=== PATIENT | male | born 1955 | race Caucasian/White ===

== ENCOUNTER 2017-03-08 08:14 | Outpatient (RCR) | payer OTHER | END 2017-03-11 12:22 | disposition home or self-care (01) | LOC: CR 08:14 | PROVIDERS: ATTEND Internal Medicine | DX: Z48.812 Encounter for surgical aftercare following surgery on the circulatory system (principal); I25.2 Old myocardial infarction; Z95.5 Presence of coronary angioplasty implant and graft | CPT/HCPCS: 93798 ==

== ENCOUNTER 2018-02-28 09:35 | Outpatient (RCR) | payer OTHER ==
[2017-12-06 11:10] LABS: ABSOLUTE RETIC # 32 10e9/L (24-90); BASOPHILS % (AUTO) 0 % (0-10); EOSINOPHILS # (AUTO) 0.1 10^3/uL (0.0-0.3); EOSINOPHILS % (AUTO) 4 % (0-10); HEMATOCRIT 40 % (40-54); HEMOGLOBIN 12.6 G/DL (13.3-17.7); LYMPHOCYTES # (AUTO) 1.5 X 10^3 (1.0-4.0); LYMPHOCYTES % (AUTO) 40 % (12-44); MEAN CORPUSCULAR HEMOGLOBIN 25 PG (25-34); MEAN CORPUSCULAR HGB CONC 31 G/DL (32-36); MEAN CORPUSCULAR VOLUME 81 FL (80-99); MEAN PLATELET VOLUME 9.7 FL (7.4-10.4); MONOCYTES # (AUTO) 0.4 X 10^3 (0.0-1.0); MONOCYTES % (AUTO) 9 % (0-12); NEUTROPHILS # (AUTO) 1.8 X 10^3 (1.8-7.8); NEUTROPHILS % (AUTO) 47 % (42-75); PLATELET COUNT 186 10^3/uL (130-400); RETICULOCYTE % 0.64 % (0.50-2.40); WHITE BLOOD COUNT 3.8 10^3/uL (4.3-11.0)
[2017-12-06 11:34] LABS: ALANINE AMINOTRANSFERASE 23 U/L (0-55); ALBUMIN 4.1 GM/DL (3.2-4.5); ALKALINE PHOSPHATASE 46 U/L (40-136); BILIRUBIN,TOTAL 0.5 MG/DL (0.1-1.0); BUN/CREATININE RATIO 18; CALCIUM 8.8 MG/DL (8.5-10.1); CARBON DIOXIDE 21 MMOL/L (21-32); CHLORIDE 110 MMOL/L (98-107); CREATININE SERUM 0.93 MG/DL (0.60-1.30); GFR ESTIMATED > 60; GLUCOSE 151 MG/DL (70-105); POTASSIUM 4.6 MMOL/L (3.6-5.0); SODIUM 140 MMOL/L (135-145); TOTAL PROTEIN 6.4 GM/DL (6.4-8.2)
[2018-02-28 09:52] LABS: ABSOLUTE RETIC # 45 10e9/L (24-90); BASOPHILS % (AUTO) 0 % (0-10); EOSINOPHILS # (AUTO) 0.1 10^3/uL (0.0-0.3); EOSINOPHILS % (AUTO) 1 % (0-10); HEMATOCRIT 44 % (40-54); LYMPHOCYTES # (AUTO) 1.8 X 10^3 (1.0-4.0); LYMPHOCYTES % (AUTO) 41 % (12-44); MEAN CORPUSCULAR HEMOGLOBIN 30 PG (25-34); MEAN CORPUSCULAR HGB CONC 34 G/DL (32-36); MEAN CORPUSCULAR VOLUME 87 FL (80-99); MEAN PLATELET VOLUME 9.3 FL (7.4-10.4); MONOCYTES # (AUTO) 0.4 X 10^3 (0.0-1.0); MONOCYTES % (AUTO) 8 % (0-12); NEUTROPHILS # (AUTO) 2.2 X 10^3 (1.8-7.8); NEUTROPHILS % (AUTO) 50 % (42-75); PLATELET COUNT 219 10^3/uL (130-400); RED BLOOD COUNT 5.03 10^6/uL (4.35-5.85); RED CELL DISTRIBUTION WIDTH 15.1 % (10.0-14.5); WHITE BLOOD COUNT 4.4 10^3/uL (4.3-11.0)
[2018-02-28 10:08] LABS: ALANINE AMINOTRANSFERASE 33 U/L (0-55); ALBUMIN 4.3 GM/DL (3.2-4.5); ALKALINE PHOSPHATASE 54 U/L (40-136); BILIRUBIN,TOTAL 0.7 MG/DL (0.1-1.0); BUN/CREATININE RATIO 24; CARBON DIOXIDE 22 MMOL/L (21-32); CHLORIDE 111 MMOL/L (98-107); GFR ESTIMATED > 60; GLUCOSE 105 MG/DL (70-105); POTASSIUM 4.8 MMOL/L (3.6-5.0); SODIUM 140 MMOL/L (135-145); TOTAL PROTEIN 6.7 GM/DL (6.4-8.2)
== END 2018-03-06 | disposition home or self-care (01) ==
LOC: ONC 09:35
PROVIDERS: ATTEND Internal Medicine Hematology & Oncology
DX: D64.9 Anemia, unspecified (principal); K31.89 Other diseases of stomach and duodenum; K21.9 Gastro-esophageal reflux disease without esophagitis; I25.10 Atherosclerotic heart disease of native coronary artery without angina pectoris; I10 Essential (primary) hypertension; E11.9 Type 2 diabetes mellitus without complications; I25.2 Old myocardial infarction; Z95.5 Presence of coronary angioplasty implant and graft; Z79.02 Long term (current) use of antithrombotics/antiplatelets; Z79.82 Long term (current) use of aspirin; Z79.84 Long term (current) use of oral hypoglycemic drugs; Z79.899 Other long term (current) drug therapy
CPT/HCPCS: 36415; 80053; 82728; 83540; 85025; 85045; 99213; 99214

== ENCOUNTER → 2018-10-01 | Outpatient (CLI) | payer OTHER ==
[~2018-10-01] MED LIST: CATHETER FLUSH 10 ML SYR IV PRN
[2018-10-01 14:03] LABS: BASOPHILS % (AUTO) 0 % (0-10); EOSINOPHILS # (AUTO) 0.1 10^3/uL (0.0-0.3); EOSINOPHILS % (AUTO) 2 % (0-10); HEMATOCRIT 43 % (40-54); HEMOGLOBIN 14.1 G/DL (13.3-17.7); LYMPHOCYTES % (AUTO) 32 % (12-44); MEAN CORPUSCULAR HEMOGLOBIN 29 PG (25-34); MEAN CORPUSCULAR HGB CONC 33 G/DL (32-36); MEAN CORPUSCULAR VOLUME 89 FL (80-99); MEAN PLATELET VOLUME 9.3 FL (7.4-10.4); MONOCYTES # (AUTO) 0.5 X 10^3 (0.0-1.0); MONOCYTES % (AUTO) 9 % (0-12); NEUTROPHILS # (AUTO) 3.6 X 10^3 (1.8-7.8); NEUTROPHILS % (AUTO) 57 % (42-75); PLATELET COUNT 240 10^3/uL (130-400); RED CELL DISTRIBUTION WIDTH 13.5 % (10.0-14.5); WHITE BLOOD COUNT 6.3 10^3/uL (4.3-11.0)
[2018-10-01 14:19] LABS: ALANINE AMINOTRANSFERASE 28 U/L (0-55); ALBUMIN 4.5 GM/DL (3.2-4.5); ALKALINE PHOSPHATASE 60 U/L (40-136); BILIRUBIN,TOTAL 0.5 MG/DL (0.1-1.0); BUN/CREATININE RATIO 19; CALCIUM 9.7 MG/DL (8.5-10.1); CARBON DIOXIDE 19 MMOL/L (21-32); CHLORIDE 107 MMOL/L (98-107); CHOLESTEROL 121 MG/DL (< 200); CREATININE SERUM 0.94 MG/DL (0.60-1.30); GFR ESTIMATED > 60; GLUCOSE 101 MG/DL (70-105); HDL CHOLESTEROL 32 MG/DL (40-60); POTASSIUM 4.5 MMOL/L (3.6-5.0); SODIUM 137 MMOL/L (135-145); TOTAL PROTEIN 7.1 GM/DL (6.4-8.2); TRIGLYCERIDES 120 MG/DL (<150); VLDL CHOLESTEROL 24 MG/DL (5-40)
--- NOTE | 2018-10-01 15:39 | STRESS TEST ---
DATE OF SERVICE: 10/01/2018 EXERCISE MYOVIEW STRESS TEST REFERRING PHYSICIAN: [facility]. Baseline heart rate is 75. Baseline blood pressure 121/88. Baseline EKG is sinus rhythm with no ischemic changes. In summary, the patient was injected with 10.14 mCi of technetium-99 Myoview and the resting images were obtained and the patient started exercising with a baseline heart rate, blood pressure and EKG mentioned above. He was able to exercise for a total of 9 minutes on standard Lukas protocol. With peak exercise level, EKG was showing minimal nondiagnostic changes. During recovery, heart rate and blood pressure returned to baseline. EKG returned to baseline. The resting and stress images were reviewed and compared in the short axis, horizontal long axis, and vertical long axis views. Review of the images showed diaphragmatic attenuation affecting the quality of the images. There is decreased uptake involving the mid to apical anterior wall, true apex and anterior apical segment with mild reversibility. SSS is 13, SDS 4, and TID value 1.04. On the gated images, the left ventricle appeared to be normal size with hypokinesia of the anterior wall and apex. Calculated ejection fraction is 42%. CONCLUSION: 1. Good exercise tolerance, a total of 9 minutes on standard Lukas protocol, total of 10.5 METs, achieving 89% of maximum expected heart rate. 2. Hypertensive response to exercise with peak blood pressure 180/91, returned to baseline during recovery. 3. Minimal nondiagnostic EKG changes with exercise returned to baseline during recovery. 4. Diaphragmatic attenuation with reversible ischemia involving the anteroapical segment and through apex of the left ventricle. 5. Normal left ventricular size with hypokinesia at the anterior wall and anterior apical segment. Calculated ejection fraction is 42%. Job ID: [id number] DocumentID: [id number] Dictated Date: 10/01/2018 15:14:39 Rafter Cutting Machine Operator Date: 10/01/2018 15:38:13 Dictated By: EDY RAZA MD
== END ==
LOC: CARD 11:37
PROVIDERS: ATTEND Internal Medicine Cardiovascular Disease
DX: I25.10 Atherosclerotic heart disease of native coronary artery without angina pectoris (principal); I21.4 Non-ST elevation (NSTEMI) myocardial infarction; R06.02 Shortness of breath; I08.0 Rheumatic disorders of both mitral and aortic valves
CPT/HCPCS: 36415; 78452; 80053; 80061; 84443; 85025; 93017

== ENCOUNTER 2018-10-15 07:59 | Day surgery (SDC) | payer OTHER ==
[~2018-10-15] VITALS: Ht 180.3 cm; Wt 103.4 kg
[2018-10-15] VITALS (10 sets, daily range): BP systolic 104–134; BP diastolic 74–95
[2018-10-15] MEDS ORDERED: NS IV 1000 ML 1,000 ML IV SCH ×2 (08:15→10:55)
[2018-10-15] MEDS ORDERED: HEParin 1000 UNIT/ML (10ML VIAL) FOR BOLUS ONE (08:17)
[2018-10-15] MEDS ORDERED: LIDOCAINE 1% INJ 20 ML 20 ML VIAL ONE (08:17)
[2018-10-15 09:07] LABS: BILIRUBIN,URINE NEGATIVE (NEGATIVE); CLARITY,URINE CLEAR; COLOR,URINE YELLOW; GLUCOSE, URINE (UA) NEGATIVE (NEGATIVE); KETONES,URINE NEGATIVE (NEGATIVE); LEUKOCYTE ESTERASE ,URINE NEGATIVE (NEGATIVE); NITRITE,URINE NEGATIVE (NEGATIVE); PH,URINE 7 (5-9); PROTEIN,URINE NEGATIVE (NEGATIVE); UROBILINOGEN,URINE NORMAL (NORMAL)
[2018-10-15 09:07] LABS: MEAN PLATELET VOLUME 8.9 FL (7.4-10.4); RED CELL DISTRIBUTION WIDTH 13.6 % (10.0-14.5); WHITE BLOOD COUNT 4.4 10^3/uL (4.3-11.0)
--- NOTE | 2018-10-15 09:09 | Cardiac Procedure Note-CS/ASA ---
Pre-Procedure Note Pre-Op Procedure Note H&P Reviewed The H&P was reviewed, patient examined and no changes noted. Date H&P Reviewed: Oct 15, 2018 Time H&P Reviewed: 09:08 Conscious Sedation Pre-Proced Time 09:08 ASA Score 3 For ASA 3 and 4: Consider anesthesia and medical clearance. Also, for patients with a history of failed moderate sedation consider anesthesia. Airway Lungs Heart ASA score ASA 1: a normal healthy patient ASA 2: a patient with a mild systemic disease (mid diabetes, controlled hypertension, obesity x ASA 3: a patient with a severe systemic disease that limits activity (angina , COPD, prior Myocardial infarction) ASA 4: a patient with an incapacitating disease that is a constant threat to life (CHF, renal failure) ASA 5: a moribund patient not expected to survive 24 hrs. (ruptured aneurysm) ASA 6: a declared brain- patient whose organs are being harvested. For emergent operations, add the letter E after the classification Mallampati Classification Grade 3 Sedation Plan Analgesia, Amnesia, Plan communicated to team members, Discussed options with patient/fam, Discussed risks with patient/fam The patient is an appropriate candidate to undergo the planned procedure, sedation, and anesthesia. The patient immediately re-assessed prior to indication. EDY RAZA MD Oct 15, 2018 09:09
[2018-10-15 09:18] LABS: INR 1.1 (0.8-1.4); PROTHROMBIN TIME PATIENT 13.8 SEC (12.2-14.7)
[2018-10-15 09:20] LABS: BACTERIA,URINE NEGATIVE /HPF; SQUAMOUS EPITHELIAL CELL,UR 0-2 /HPF
[2018-10-15 09:21] LABS: AMORPHOUS SEDIMENT,UR FEW AMOR PHOSPHATE /LPF
--- NOTE | 2018-10-15 09:21 | Diagnostic Imaging Report ---
INDICATION: Chest pain, coronary artery disease COMPARISON: 11/26/2017 FINDINGS: Single view chest demonstrate minimal cardiac enlargement without pulmonary edema or infiltrate. There is no pneumothorax. The osseous structures normal. IMPRESSION: Minimal cardiac enlargement without pulmonary edema or infiltrate. Dictated by: Dictated on workstation # [id number]
[2018-10-15 09:25] LABS: ALANINE AMINOTRANSFERASE 32 U/L (0-55); ALBUMIN 4.3 GM/DL (3.2-4.5); ALKALINE PHOSPHATASE 57 U/L (40-136); BILIRUBIN,TOTAL 0.6 MG/DL (0.1-1.0); BUN/CREATININE RATIO 21; CALCIUM 9.1 MG/DL (8.5-10.1); CARBON DIOXIDE 25 MMOL/L (21-32); CHLORIDE 107 MMOL/L (98-107); CHOLESTEROL 107 MG/DL (< 200); CREATININE SERUM 0.89 MG/DL (0.60-1.30); GFR ESTIMATED > 60; GLUCOSE 111 MG/DL (70-105); HDL CHOLESTEROL 29 MG/DL (40-60); POTASSIUM 4.8 MMOL/L (3.6-5.0); SODIUM 139 MMOL/L (135-145); TRIGLYCERIDES 76 MG/DL (<150); VLDL CHOLESTEROL 15 MG/DL (5-40)
[2018-10-15] MEDS ORDERED: DEXL30CA2 PO (09:34)
[2018-10-15] MEDS ORDERED: CARV3.122 PO (09:35)
[2018-10-15] MEDS ORDERED: ASPI-586 PO (09:35)
[2018-10-15] MEDS ORDERED: CETI10TA20 PO (09:35)
[2018-10-15] MEDS ORDERED: LOSA25TA41 PO (09:36)
[2018-10-15] MEDS ORDERED: MONT10TA21 PO (09:36)
[2018-10-15] MEDS ORDERED: ATOR40TA70 PO (09:37)
[2018-10-15] MEDS ORDERED: METF-478 PO (09:37)
[2018-10-15] MEDS ORDERED: KRIL1CAP18 PO (09:38)
--- NOTE | 2018-10-15 09:38 | NUR ---
Went over medication bottles with . She stated how he took his medications and the last time medications where taken.
[2018-10-15] MEDS ORDERED: fentaNYL INJECTION 100 MCG/2 ML AMP ONE (10:02)
[2018-10-15] MEDS ORDERED: MIDAZOLAM 5 MG/5 ML (VERSED) VIAL ONE (10:02)
[2018-10-15] MEDS ORDERED: PATIENT MAY USE OWN MEDS, ALL PO SCH (11:00)
--- NOTE | 2018-10-15 11:02 | Cardiac Cath Report ---
Cardiac Cath Report Physician (s)/Slot Supervisor (s) Physician EDY RAZA MD Pre-Procedure Diagnosis Pre-Procedure Diagnosis: coronary artery disease Post-Procedure Note Procedure Start Date: Oct 15, 2018 Name of Procedure: Left heart catheterization Left ventriculogram Aortic arch angiogram Findings/Procedure Note PROCEDURE NOTE: 62 years old gentleman with history of coronary artery disease, had myocardial infarctions in 2017 with stent to the LAD, had an abnormal stress test and scheduled for cardiac catheterization possible PTCA After explaining the procedure to the patient, all pros and cons were explained , all questions were answered. The patient signed the consent and then he was placed on the cardiac catheterization laboratory. Groin was prepped SL fashion local anesthesia was used. Sheath placed in the right femoral artery. Samantha right and left catheter were used to access the coronary system. Pigtail was used to access the left ventricular cavity. Left ventriculogram was done Aortic arch angiogram was done At the end of the procedure the sheath was removed. Closure device was used FINDINGS: Hemodynamics LV 95/12, end-diastolic pressure of 12 Aorta 95/56 mean of 51 ANATOMY: Left Main is free of obstructive disease Left Anterior Descending has patent stent with mild disease at the distal LAD, nonobstructive disease Left Circumflex has 40-50 percent stenosis at the midportion, nonobstructive disease Right Coronory Artery is dominant artery with mild disease nonobstructive disease LV Gram showed normal left ventricular size with good contractility estimated ejection fraction 60 percent, mild hypokinesia at the apex Aorta evaluation done with aortic arch angiogram Showed hypertensive changes in the aortic arch, no dissection or aneurysm, origin of the right innominate artery, left carotid artery and left subclavian arteries appeared normal CONCLUSION: 1. Patent stent in the proximal LAD with small vessel disease at the distal LAD nonobstructive disease 2. Mild disease in the circumflex and right coronary artery nonobstructive disease 3. Normal left ventricular size and systolic function, mild hypokinesia at the apex, estimated ejection fraction 60 percent 4. Normal aortic arch and great vessels of the neck DISCUSSION AND RECOMMENDATION: continue with medical therapy no intervention is needed Anesthesia Type: Conscious Sedation Estimated blood loss (mL): 15 ml Contrast Amount: 52 ml Total Radiation Dose: 433 mGy Post-Procedure Diagnosis Post-operative diagnosis: Coronary artery disease Hypertension Hyperlipidemia Diabetes mellitus EDY RAZA MD Oct 15, 2018 11:02
--- NOTE | 2018-10-15 11:03 | Discharge Inst-Post CATH ---
Discharge Inst-CATH/EP Post Cardiac Cath/EP D/C Inst Follow Up/Plan Appointment with Dr Engel's office in 4 weeks Hold metformin for 48 hours CARDIAC CATH DISCHARGE INSTRUCTIONS *Hold Metformin for 48 hours post heart cath. ACTIVITY * Go Home directly and rest. * Limit activity of the leg (or wrist if it was used) for 7 days including aerobics, swimming, jogging, bicycling, etc. * Restrict stair-climbing for 7 days if possible, if not, climb up with your non -cath leg, then bring together on the same step. * Avoid lifting, pushing, pulling or excessive movement of the affected extremity for 7 days. * Customary sexual activity may be resumed after 2 days-use caution not to use a position that strains or causes pain to the affected extremity. * No driving for 24 hours. * NO SMOKING. * Avoid straining for bowel movements for 7 days. * Gentle walking on level ground is allowed. * Returning to work will depend on the type of procedure and the results. Your doctor will discuss this with you. CALL YOUR DOCTOR FOR ANY OF THE FOLLOWING: *If bleeding from the puncture site occurs- Apply gentle pressure to site with clean cloth and call your doctor or EMS. * If a knot or lump forms under the skin, increases in size, or causes pain. * If bruising appears to be worsening or moving further down your leg instead of disappearing. * Temperature above 101 F. CARE OF YOUR GROIN INCISION; * Bruising or purple discoloration of the skin near the puncture site is common. * You may shower only, no bathtub bathing for 5 days. Be careful to avoid slipping as your leg may feel stiff. * If a closure device was used on your femoral artery, please see the attached guide regarding care of the device and your leg. * Leave the dressing on, until removed by office staff. CARE OF YOUR WRIST INCISION; * Bruising or purple discoloration of the skin near the puncture site is common. * You may shower. * DO NOT submerge wrist. * Leave dressing on, until removed by office staff.. EDY ENGEL MD Oct 15, 2018 11:03
== END 2018-10-15 15:15 | disposition home or self-care (01) ==
LOC: RAD 07:59 → SDC 11:16 → CATH 15:15
PROVIDERS: ATTEND Internal Medicine Cardiovascular Disease
DX: I25.10 Atherosclerotic heart disease of native coronary artery without angina pectoris (principal); I11.0 Hypertensive heart disease with heart failure; E78.5 Hyperlipidemia, unspecified; E11.9 Type 2 diabetes mellitus without complications; I25.2 Old myocardial infarction; R06.02 Shortness of breath; G47.30 Sleep apnea, unspecified; I08.3 Combined rheumatic disorders of mitral, aortic and tricuspid valves; I65.29 Occlusion and stenosis of unspecified carotid artery; D64.9 Anemia, unspecified; I50.9 Heart failure, unspecified; Z79.899 Other long term (current) drug therapy; Z79.84 Long term (current) use of oral hypoglycemic drugs
CPT/HCPCS: 36221; 36415; 36430; 71045; 80053; 80061; 81000; 85027; 85610; 85730; 87081; 93458

== ENCOUNTER → 2020-03-17 | Outpatient (CLI) | payer OTHER ==
[~2020-03-17] MED LIST changes: +ASPI-586 PO; +ATOR40TA70 PO; +CARV3.122 PO; -CATHETER FLUSH 10 ML SYR IV PRN; +CETI10TA21 PO; +DEXL30CA2 PO; +KRIL1CAP18 PO; +LOSA25TA41 PO; +METF-478 PO; +MONT10TA21 PO
== END ==
LOC: CARD 15:00
PROVIDERS: ATTEND Internal Medicine Cardiovascular Disease
DX: I25.10 Atherosclerotic heart disease of native coronary artery without angina pectoris (principal); I25.5 Ischemic cardiomyopathy; I08.0 Rheumatic disorders of both mitral and aortic valves
CPT/HCPCS: 93306

== ENCOUNTER → 2021-09-04 | Outpatient (CLI) | payer MEDICARE, OTHER ==
[~2021-09-04] VITALS: Ht 180 cm; Wt 102.0 kg
[~2021-09-04] MED LIST changes: +CATHETER FLUSH 10 ML SYR IV PRN; -CETI10TA21 PO; +CETI10TA49 PO
[2021-09-04 09:32] VITALS: BP 129/82
--- NOTE | 2021-09-04 12:56 | Cardiology Stress Test Report ---
Stress Test Report Date of Procedure/Referring: Date of Procedure: Sep 04, 2021 PCP Edy Engel MD Admitting Physician [place] Indications: HTN Baseline Heart Rate: 57 Baseline Blood Pressure: Blood Pressure Systolic: 129 Blood Pressure Diastolic: 82 Vital Signs Date Time Temp Pulse Resp B/P (MAP) Pulse Ox O2 Delivery O2 Flow Rate FiO2 09/04/21 09:32 57 129/82 (98) Baseline Vital Signs Vital Signs Date Time Temp Pulse Resp B/P (MAP) Pulse Ox O2 Delivery O2 Flow Rate FiO2 09/04/21 09:32 57 129/82 (98) Baseline EKG: Baseline EKG: NSR Summary: After explaining the procedure and details to the patient, he signed the consent and was brought to the stress nuclear laboratory. Patient exercised on standard Lukas protocol, EKG, heart rate and blood pressure were monitored continuously, resting and stress doses of radio tracer were injected, imaging was acquired and reviewed in the short axis, horizontal long axis and vertical long axis views Patient was able to exercise for a total of 7.30 minutes on Lukas protocol, METs 9.1 Maximum heart rate 139 Maximum blood pressure 185/94 Stress EKG, Minimal nondiagnostic changes Recovery EKG, Return to baseline TID: 0.97 SSS: 13 SDS: 5 EF: 45 Conclusion: 1. Good exercise tolerance for 7 minutes 30 seconds on standard Lukas protocol, 9.1 METS achieving 89% of maximal expected heart rate 2. Hypertensive response to exercise with peak blood pressure 185/94 return to baseline during recovery 3. Nondiagnostic EKG changes with exercise return to baseline during recovery 4. Reversible ischemia involving the anterior wall and anterolateral wall with fixed defect at the apex EDY ENGEL MD Sep 04, 2021 12:56
== END ==
LOC: CARD 08:48
PROVIDERS: ATTEND Internal Medicine Cardiovascular Disease
DX: I11.9 Hypertensive heart disease without heart failure (principal); I34.0 Nonrheumatic mitral (valve) insufficiency
CPT/HCPCS: 78452; 93017; 93306; A9502

== ENCOUNTER → 2023-04-16 | Outpatient (CLI) | payer MEDICARE, OTHER ==
[~2023-04-16] MED LIST changes: -CATHETER FLUSH 10 ML SYR IV PRN; +MONT-47 PO; -MONT10TA21 PO
== END ==
LOC: CARD 13:01
PROVIDERS: ATTEND Internal Medicine Cardiovascular Disease
DX: I11.0 Hypertensive heart disease with heart failure (principal); I50.20 Unspecified systolic (congestive) heart failure
CPT/HCPCS: 93306

== ENCOUNTER → 2023-05-20 | Outpatient (CLI) | payer MEDICARE, OTHER ==
[~2023-05-20] VITALS: Ht 180 cm; Wt 96.0 kg
[~2023-05-20] MED LIST changes: +ASCO-262 PO; +ASPI-1238 PO; +CAND8TAB14 PO; +CARV6.252 PO; +CATHETER FLUSH 10 ML SYR IVP PRN; +DEXL30CA4 PO; +DOCU-143 PO; +FERR325T18 PO; +METF-865 PO; +REGADENOSON 0.4 MG/5 ML SYR IV ONE; +SEMA0.258 SQ; +TR1C15 TP
[2023-05-20 09:57] VITALS: BP 130/89
--- NOTE | 2023-05-20 11:26 | Cardiology Stress Test Report ---
Stress Test Report Date of Procedure/Referring: Date of Procedure: May 20, 2023 PCP Yumiko Mcfarlane Admitting Physician Admitting Physician: Attending Physician: Edy Engel MD Baseline Heart Rate: 72 Baseline Blood Pressure: Blood Pressure Systolic: 130 Blood Pressure Diastolic: 89 Baseline Vitals Vital Signs Date Time Temp Pulse Resp B/P (MAP) Pulse Ox O2 Delivery O2 Flow Rate FiO2 05/20/23 09:57 66 130/89 (103) 94 Baseline EKG: Baseline EKG: NSR Summary After explaining the procedure to the patient, he signed a consent and then brought to the stress nuclear laboratory. Patient received 0.4 mg Lexiscan for stress test, ECG, heart rate and blood pressure were monitored continuously. Resting and stress dose of radio tracer were injected, imaging was acquired and reviewed in short axis, horizontal long axis and vertical long axis views. TID: 1.01 SSS: 15 SDS: 8 EF: 44 NextPatient tolerated Lexiscan well Defect involving the apex and inferoapical segment, reversible ischemia involving the mid to apical anterior wall and anterolateral wall Normal left ventricular size, ejection fraction 44% No attenuation correction was done on the study Copy Copies To 1: [facility] EDY ENGEL MD May 20, 2023 11:26
== END ==
LOC: CARD 08:07
PROVIDERS: ATTEND Internal Medicine Cardiovascular Disease
DX: I10 Essential (primary) hypertension (principal)
CPT/HCPCS: 78452; 93017; A9502

== ENCOUNTER 2023-05-22 06:57 | Day surgery (SDC) | payer MEDICARE, OTHER ==
[~2023-05-22] VITALS: Ht 180 cm; Wt 100.7 kg
[2023-05-22] VITALS (12 sets, daily range): BP systolic 105–128; BP diastolic 73–98
[~2023-05-22 06:57] MED LIST changes: -ASCO-262 PO; -ASPI-1238 PO; -CAND8TAB14 PO; -CARV6.252 PO; -CATHETER FLUSH 10 ML SYR IVP PRN; -DEXL30CA4 PO; -DOCU-143 PO; -FERR325T18 PO; -METF-865 PO; -REGADENOSON 0.4 MG/5 ML SYR IV ONE; -SEMA0.258 SQ; -TR1C15 TP
[2023-05-22] MEDS ORDERED: NS IV 1000 ML 1,000 ML IV SCH ×2 (07:00→10:00)
[2023-05-22] MEDS ORDERED: LIDOCAINE 1% INJ 20 ML VIAL ONE (07:04)
[2023-05-22] MEDS ORDERED: NS IV 1000 ML 1,000 ML ONE (07:04)
[2023-05-22] MEDS ORDERED: HEParin (CATH LAB) 2,000 ML IV ONE (07:04)
--- NOTE | 2023-05-22 07:26 | Diagnostic Imaging Report ---
INDICATION: Shortness of breath. Comparison is made with prior exam of 10/15/2018. FINDINGS: The heart size, mediastinal configuration, and pulmonary vascularity are within normal limits. There is no pleural effusion, pneumothorax, or pneumonia. The osseous structures are unremarkable. IMPRESSION: No acute cardiopulmonary abnormality. Dictated by: Dictated on workstation # [id number]
[2023-05-22 07:37] LABS: HEMATOCRIT 43 % (40-54); HEMOGLOBIN 14.4 g/dL (13.3-17.7); MEAN CORPUSCULAR HEMOGLOBIN 31 pg (25-34); MEAN CORPUSCULAR HGB CONC 34 g/dL (32-36); MEAN CORPUSCULAR VOLUME 92 fL (80-99); PLATELET COUNT 223 10^3/uL (130-400); WHITE BLOOD COUNT 3.9 10^3/uL (4.3-11.0)
[2023-05-22 07:46] LABS: BILIRUBIN,URINE NEGATIVE (NEGATIVE); CLARITY,URINE CLEAR; COLOR,URINE YELLOW; GLUCOSE, URINE (UA) NEGATIVE (NEGATIVE); KETONES,URINE NEGATIVE (NEGATIVE); LEUKOCYTE ESTERASE ,URINE NEGATIVE (NEGATIVE); NITRITE,URINE NEGATIVE (NEGATIVE); PROTEIN,URINE NEGATIVE (NEGATIVE); RBC,URINE RARE /HPF
[2023-05-22 07:47] LABS: BACTERIA,URINE NEGATIVE /HPF; SQUAMOUS EPITHELIAL CELL,UR RARE /HPF; WBC,URINE RARE /HPF
[2023-05-22 07:56] LABS: PROTHROMBIN TIME PATIENT 13.1 SEC (12.2-14.7)
[2023-05-22 07:57] LABS: ALBUMIN 4.1 GM/DL (3.2-4.5); BILIRUBIN,TOTAL 0.4 MG/DL (0.1-1.0); CALCIUM 8.9 MG/DL (8.5-10.1); CREATININE SERUM 0.84 MG/DL (0.60-1.30); POTASSIUM 4.6 MMOL/L (3.6-5.0); TOTAL PROTEIN 6.5 GM/DL (6.4-8.2)
[2023-05-22] MEDS ORDERED: DOCU-143 PO (08:02)
[2023-05-22] MEDS ORDERED: CAND8TAB14 PO (08:02)
[2023-05-22] MEDS ORDERED: FERR325T18 PO (08:02)
[2023-05-22] MEDS ORDERED: TR1C15 TP (08:02)
[2023-05-22] MEDS ORDERED: CARV6.252 PO (08:02)
[2023-05-22] MEDS ORDERED: ASPI-1238 PO (08:02)
[2023-05-22] MEDS ORDERED: CETI10TA49 PO (08:02)
[2023-05-22] MEDS ORDERED: METF-865 PO (08:02)
[2023-05-22] MEDS ORDERED: ASCO-262 PO (08:02)
[2023-05-22] MEDS ORDERED: DEXL30CA4 PO (08:02)
[2023-05-22] MEDS ORDERED: SEMA0.258 SQ (08:02)
[2023-05-22] MEDS ORDERED: fentaNYL INJECTION 100 MCG/2 ML VIAL ONE (08:40)
[2023-05-22] MEDS ORDERED: MIDAZOLAM INJ 5 MG/5 ML VIAL ONE (08:41)
--- NOTE | 2023-05-22 08:47 | Cardiac Procedure Note-CS/ASA ---
Pre-Procedure Note Pre-Op Procedure Note Date of Available H&P: May 21, 2023 Date H&P Reviewed: May 22, 2023 Time H&P Reviewed: 08:46 History & Physical: H&P Reviewed, Patient Examed, No changes noted Pre-Operative Diagnosis: coronary artery disease Moderate Sedation PreProcedure Time 08:46 ASA Score 3 Airway Lungs Heart ASA score ASA 1: a normal healthy patient ASA 2: a patient with a mild systemic disease (mid diabetes, controlled hypertension, obesity ASA 3: a patient with a severe systemic disease that limits activity (angina, COPD, prior Myocardial infarction) ASA 4: a patient with an incapacitating disease that is a constant threat to life (CHF, renal failure) ASA 5: a moribund patient not expected to survive 24 hrs. (ruptured aneurysm) ASA 6: a declared brain- patient whose organs are being harvested. For emergent operations, add the letter E after the classification Mallampati Classification Grade 3 Sedation Plan Analgesia, Amnesia, Plan communicated to team members, Discussed options with patient/fam, Discussed risks with patient/fam The patient is an appropriate candidate to undergo the planned procedure, sedation, and anesthesia. The patient immediately re-assessed prior to indication. EDY RAZA MD May 22, 2023 08:47
[2023-05-22] MEDS ORDERED: HEParin 1000 UNIT/ML (10ML VIAL) FOR BOLUS ONE (09:26)
--- NOTE | 2023-05-22 09:48 | Discharge Inst-Post CATH ---
Discharge Inst-CATH/EP Problems Reviewed?: Yes Post Cardiac Cath/EP D/C Inst Follow Up/Plan Hold metformin for [address] Engel's office in 2 to 4 weeks <b>CARDIAC CATH/EP PROCEDURE DISCHARGE INSTRUCTIONS</b> ACTIVITY * Go Home directly and rest. * Limit activity of the leg (or wrist if it was used) for 7 days including aerobics, swimming, jogging, bicycling, etc. * Restrict stair-climbing for 7 days if possible, if not, climb up with your non-cath leg, then bring together on the same step. * Avoid lifting, pushing, pulling or excessive movement of the affected extremity for 7 days. * Customary sexual activity may be resumed after 2 days-use caution not to use a position that strains or causes pain to the affected extremity. * No driving for 24 hours. * NO SMOKING. * Avoid straining for bowel movements for 7 days. * Gentle walking on level ground is allowed. * Returning to work will depend on the type of procedure and the results. Your doctor will discuss this with you. CALL YOUR DOCTOR FOR ANY OF THE FOLLOWING: *If bleeding from the puncture site occurs- Apply gentle pressure to site with clean cloth and call your doctor or EMS. * If a knot or lump forms under the skin, increases in size, or causes pain. * If bruising appears to be worsening or moving further down your leg instead of disappearing. * Temperature above 101 F. CARE OF YOUR GROIN INCISION; * Bruising or purple discoloration of the skin near the puncture site is common. * You may shower only, no bathtub bathing for 5 days. Be careful to avoid slipping as your leg may feel stiff. * If a closure device was used on your femoral artery, please see the attached guide regarding care of the device and your leg. * Leave dressing on FOR 24 hours. CARE OF YOUR WRIST INCISION; * Bruising or purple discoloration of the skin near the puncture site is common. * You may shower. * DO NOT submerge wrist. * Leave dressing on FOR 24 hours. EDY ENGEL MD May 22, 2023 09:48
--- NOTE | 2023-05-22 09:53 | Cardiac Cath Report ---
Cardiac Cath Report Physician (s)/Sewer System Supervisor (s) Physician EDY RAZA MD Pre-Procedure Diagnosis Pre-Procedure Diagnosis: coronary artery disease Post-Procedure Note Procedure Start Date: May 22, 2023 Name of Procedure: Left heart catheterization IFR to the LAD Findings/Procedure Note PROCEDURE NOTE: 67-year-old gentleman with history of coronary artery disease old myocardial infarction with stenting to the LAD, had an abnormal stress test with anterior wall ischemia. Cardiac catheterization was advised. After explaining the procedure to the patient, all pros and cons were explained, all questions were answered. The patient signed the consent and then he was placed in the cardiac catheterization laboratory. Groin was prepped in SL fashion local anesthesia was used. Sheath placed in the right femoral artery. Samantha' right and left catheter were used to access the coronary system. Samantha right catheter was advanced to the left ventricular cavity, pressure was measured pullback LV to aorta was done. Patient received 3000 units of heparin, Samantha left guide was used, IFR wire was advanced and parked in the distal LAD, baseline IFR was 0.95. Pullback was done and stepup at the distal portion of the stent and at the mid LAD with 50% stenosis nonobstructive lesions At the end of the procedure the sheath was removed. Closure device was deployed FINDINGS: Hemodynamics LV 117/10, end-diastolic pressure of 10 Aorta 115/70 mean of 89 ANATOMY: Left Main is free of obstructive disease Left Anterior Descending has a patent stent in the proximal LAD, at the spot beyond the stent there is a 40 to 50% stenosis and mid LAD has 40 to 50% stenosis IFR was 0.95. Nonobstructive lesion, distal LAD has small vessel disease Left Circumflex is moderate in size with no obstructive disease Right Coronary Artery is dominant artery with mild disease nonobstructive disease LV Gram was not done, pressure was measured CONCLUSION: Patent stent in the proximal LAD followed by 40 to 50% stenosis then 40 to 50% lesion in the mid LAD and small vessel disease distally IFR was 0.95 nonobstructive disease Mild to moderate disease in the right coronary artery nonobstructive disease Normal left ventricular end-diastolic pressure DISCUSSION AND RECOMMENDATION: Continue to maximize medical therapy Anesthesia Type: Conscious Sedation Estimated blood loss (mL): 20 ml Contrast Amount: 21 ml Total Radiation Dose: 780 mGy Post-Procedure Diagnosis Post-operative diagnosis: Coronary artery disease Hypertension Hyperlipidemia Diabetes mellitus EDY RAZA MD May 22, 2023 09:53
[2023-05-22] MEDS ORDERED: PATIENT MAY USE OWN MEDS, ALL PO SCH (10:00)
== END 2023-05-22 13:43 | disposition home or self-care (01) ==
LOC: CATH 06:57 → SDC 10:04 → CATH 13:43
PROVIDERS: ATTEND Internal Medicine Cardiovascular Disease
DX: I25.10 Atherosclerotic heart disease of native coronary artery without angina pectoris (principal); I11.0 Hypertensive heart disease with heart failure; E78.5 Hyperlipidemia, unspecified; E11.9 Type 2 diabetes mellitus without complications; E78.2 Mixed hyperlipidemia; I65.23 Occlusion and stenosis of bilateral carotid arteries; Z79.84 Long term (current) use of oral hypoglycemic drugs; Z87.891 Personal history of nicotine dependence; Z79.85 Long-term (current) use of injectable non-insulin antidiabetic drugs
CPT/HCPCS: 71045; 80053; 80061; 81000; 85027; 85610; 85730; 87081; 93005; 93458; 93571; C1760; C1887; C1894; 36415